=== PATIENT | male | born 1945 ===

== ENCOUNTER 2018-01-21 10:02 | Day surgery (SDC) | payer OTHER ==
[2018-01-21] MEDS ORDERED: Iohexol 240 (50 ml) ONE (11:53)
[2018-01-21] MEDS ORDERED: Ciprofloxacin 400mg/200ml D5W 400 MG/200 ML BAG IVPB ONE (11:53)
[2018-01-21] MEDS ORDERED: Midazolam 2 MG/2 ML VIAL ONE ×2 (12:08→12:39)
[2018-01-21] MEDS ORDERED: Etomidate 20 mg/10ml Inj IV ONE (12:34)
--- NOTE | 2018-01-21 13:10 | PCM.SURG1 ---
Surgeon's Initial Post Op Note - Surgeon's Notes Surgeon: abhinav [employer] Consultant: none Type of Anesthesia: IV Sedation Anesthesia Administered By: Pre-Operative Diagnosis: bph left hydronephrosis. Operative Findings: bph prostatitis. Post-Operative Diagnosis: bph prostatitis.left hydronephrosis. Operation Performed: cystoscopy Specimen/Specimens Removed: none Estimated Blood Loss: EBL {In ML}: 1 Blood Products Given: N/A Drains Used: No Drains Post-Op Condition: Good Date of Surgery/Procedure: 01/21/18 Time of Surgery/Procedure: 13:13
[2018-01-21 14:54] VITALS: BP 120/70; PULSE 82; RESP 18; TEMP 96; O2SAT 100
--- NOTE | 2018-01-22 04:16 | OP ---
PROCEDURE DATE: 01/21/2018 PREOPERATIVE DIAGNOSES: Benign prostatic hypertrophy, left hydronephrosis. POSTOPERATIVE DIAGNOSES: Benign prostatic hypertrophy, prostatitis, left hydronephrosis. PROCEDURE: Cystoscopy. SURGEON: Adarsh Quiñones MD GROSS FINDINGS: Good bladder capacity. No tumors or stone during emptying or filling of the bladder, moderate trabeculated bladder. Right ureteral orifice is normal. Left ureteral orifice is not visualized because of some prostate bleeding and large lateral lobes of the prostate gland meeting at the midline, a slightly elongated prostatic urethra. Membranous and penile urethra normal. TECHNIQUE: This patient was placed in a lithotomy position. The external genitalia was prepped and draped in the usual sterile fashion. A #22 panendoscope was introduced into the bladder under direct vision, finding as above. We tried to do a left retrograde pyelogram without success. Because of some prostate bleeding, unable to see the orifice clearly so the procedure was terminated. The patient withstood the procedure well. RECOMMENDATION: CAT scan renal with urogram. The patient returned to recovery room in satisfactory condition. Adarsh Quiñones MD
--- NOTE | 2018-01-24 13:29 | RAD ---
HISTORY: LT. KIDNEY OBS. COMPARISON: No prior. FINDINGS: BOWEL: Normal. No obstruction. No free air. BONES: Normal. OTHER FINDINGS: None. IMPRESSION: No significant or acute findings to account for/ related to the clinical presentation.
== END 2018-01-21 15:32 | disposition home or self-care (01) ==
LOC: C.SDS 10:02
PROVIDERS: ATTEND Urology
DX: N40.0 Benign prostatic hyperplasia without lower urinary tract symptoms (principal); N13.30 Unspecified hydronephrosis
CPT/HCPCS: 52000; 74018; C1758; C1769; J0744